=== PATIENT | male | born 1970 | race African-American/Black ===

== ENCOUNTER 2016-10-02 11:45 | Inpatient (IN) | payer OTHER ==
[~2016-10-02] VITALS: Ht 177.8 cm; Wt 212.9 kg
[2016-10-02 13:20] LABS: EOSINOPHIL (%) 0.5 % (0-5); EOSINOPHIL COUNT 0.1 K/uL (0-0.3); HEMATOCRIT 39.8 % (38.0-50.0); IMMATURE GRANULOCYTE (%) 0.5 % (0.0-0.7); IMMATURE GRANULOCYTE COUNT 0.1 K/uL; INSTRUMENT ABS NEUTROPHIL CT 8.6 K/uL; LYMPHOCYTE COUNT 1.2 K/uL (1.0-2.8); MCH 31.1 PG (29.0-34.0); MCHC 31.7 G/DL (30.0-36.0); MCV 98.3 FL (86-99); MEAN PLAT.VOLUME 11.3 uM^3 (9.0-12.4); MONOCYTE (%) 7.7 % (3-12); MONOCYTE COUNT 0.8 K/uL (0-0.8); NEUTROPHIL (%) 79.8 % (45-76); NEUTROPHIL COUNT 8.6 K/uL (1.8-6.4); PLATELET COUNT 216 K/uL (156-360); RBC DIS.WIDTH-CV 13.1 % (11.8-14.6); RBC DIS.WIDTH-SD 47.9 % (39-53); RED BLOOD COUNT 4.05 M/uL (4.00-5.50); WHITE BLOOD COUNT 10.7 K/uL (4.1-10.2)
[2016-10-02 13:30] LABS: INTER. NORMALIZED RATIO 1.1; PROTHROMBIN TIME 10.9 (9.2-11.2); PTT 26.3 (25-32)
[2016-10-02 14:01] LABS: ANION GAP 9 MEQ/L (2-14); CHLORIDE 94 MEQ/L (99-109); GFR ESTIMATE (CALCULATED) > 59 mL/min/; GLUCOSE 122 mg/dL (70-99); POTASSIUM 3.9 MEQ/L (3.7-5.4); SAMPLE HEMOLYSIS CHECK 0; SAMPLE ICTERIC CHECK 0; SAMPLE LIPEMIA CHECK 0; SODIUM 138 MEQ/L (136-147); UREA NITROGEN (BUN) 19 mg/dL (9-23)
[2016-10-02 14:03] LABS: TROP-I INTERPRETATION NEGATIVE; TROPONIN-I 0.03 ng/mL (0.0-0.30)
[2016-10-02] MEDS ORDERED: METFORMIN HCL500 MG PO (16:42)
[2016-10-02] MEDS ORDERED: LASIX80 MG PO (16:42)
[2016-10-02] MEDS ORDERED: POTASSIUM CHLO10 ME3 PO (16:42)
[2016-10-02] MEDS ORDERED: CARVEDILOL25 MG PO (16:42)
[2016-10-02] MEDS ORDERED: LISINOPRIL40 MG PO (16:43)
[2016-10-02] MEDS ORDERED: PROAIR HFA8.5 GM IH (16:43)
[2016-10-02 20:00] VITALS: BP 116/57
[2016-10-03] VITALS: BP 153/91
[2016-10-03 04:54] VITALS: BP 132/79
[2016-10-03 07:41] LABS: ANION GAP 7 MEQ/L (2-14); CHLORIDE 95 MEQ/L (99-109); SAMPLE HEMOLYSIS CHECK 0; SAMPLE ICTERIC CHECK 0; SAMPLE LIPEMIA CHECK 0; SODIUM 138 MEQ/L (136-147)
[2016-10-03 07:44] LABS: GFR ESTIMATE (CALCULATED) > 59 mL/min/; UREA NITROGEN (BUN) 20 mg/dL (9-23)
[2016-10-03 07:45] LABS: GLUCOSE 207 mg/dL (70-99)
[2016-10-03 07:50] LABS: HEMATOCRIT 42.6 % (38.0-50.0); MCH 30.9 PG (29.0-34.0); MCV 99.8 FL (86-99); MEAN PLAT.VOLUME 11.4 uM^3 (9.0-12.4); PLATELET COUNT 249 K/uL (156-360); RBC DIS.WIDTH-CV 13.1 % (11.8-14.6); RBC DIS.WIDTH-SD 48.1 % (39-53); RED BLOOD COUNT 4.27 M/uL (4.00-5.50)
[2016-10-03 07:54] LABS: WHITE BLOOD COUNT 15.2 K/uL (4.1-10.2)
[2016-10-03 08:12] VITALS: BP 132/81
[2016-10-03 08:29] LABS: Estimated Average Glucose 154 mg/dL (70-123)
[2016-10-03 11:45] LABS: POINT-OF-CARE METER ID UU13113698
[2016-10-03 16:00] VITALS: BP 134/66
[2016-10-03 20:00] VITALS: BP 116/70
[2016-10-03 21:00] LABS: POINT-OF-CARE METER ID UU13113698
[2016-10-04 00:06] VITALS: BP 81/55
[2016-10-04 01:17] VITALS: BP 121/57
[2016-10-04 05:52] VITALS: BP 129/98
[2016-10-04] MEDS ORDERED: LISINOPRIL5 MG PO (07:58)
[2016-10-04] MEDS ORDERED: PREDNISONE10 MG PO (07:58)
[2016-10-04] MEDS ORDERED: ASPIR-LOW81 MG PO (07:58)
[2016-10-04 08:00] VITALS: BP 137/93
== END 2016-10-04 09:40 | DRG 189 ==
LOC: EME → EDBD 11:45 → EME 11:45 → 4EAST 16:16 → EDOF 16:16 → 4EAST 18:16
PROVIDERS: Family Medicine; Internal Medicine; Physician Assistant
PROC: 5A09357 Assistance with Respiratory Ventilation, Less than 24 Consecutive Hours, Continuous Positive Airway Pressure (ICD-10-PCS; principal; 2016-10-02)
DX: J96.01 Acute respiratory failure with hypoxia (principal); J45.901 Unspecified asthma with (acute) exacerbation; I50.23 Acute on chronic systolic (congestive) heart failure; I11.0 Hypertensive heart disease with heart failure; E11.40 Type 2 diabetes mellitus with diabetic neuropathy, unspecified; I48.91 Unspecified atrial fibrillation; E66.01 Morbid (severe) obesity due to excess calories; Z91.19 Patient's noncompliance with other medical treatment and regimen
CPT/HCPCS: 71010; 80048; 82948; 83036; 83605; 83880; 84484; 85025; 85027; 85610; 85730; 87040; 93306; 94640; 94660; 94799; 99202; 99281; 99285; J1650; J1815; J1940; J2930; J7644